=== PATIENT | female | born 1985 | race Hispanic/Latino ===

== ENCOUNTER 2018-08-11 23:44 | Emergency (ER) | payer SELFPAY ==
[2018-08-12] MEDS ORDERED: PHENAZOPYRIDINE 100MG TAB PO ONE (00:30)
[2018-08-12 00:45] LABS: Urine Bacteria <20 /HPF (<20); Urine Culture Reflex Order REFLEXED; Urine RBC <5 /HPF (NONE SEEN)
--- NOTE | 2018-08-12 01:09 | EDPHYS ---
Physician Documentation [facility] Name: Marlene Frias Age: 33 yrs Sex: Female : 1985 Arrival Date: 08/11/2018 Time: 23:47 Bed 20 Private MD: ED Physician Will Luz HPI: 08/12 00:02 This 33 yrs old Female presents to ER via Ambulatory with complaints of jr8 Urinary Frequency, Blood in Urine. 00:02 Onset: The symptoms/episode began/occurred gradually, 3 hour(s) ago. Associated signs jr8 and symptoms: Pertinent positives: dysuria, Pertinent negatives: abdominal pain, fever, vomiting. Modifying factors: The patient symptoms are alleviated by nothing, the patient symptoms are aggravated by nothing. The patient has not experienced similar symptoms in the past. The patient has not recently seen a physician. Patient reports urgency, dysuria, and blood in urine with onset 3 hrs ago. Also reports mild bilateral lower back pain. 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 - Ebola Screening: : No symptoms or risks identified at this time. ROS: 08/12 00:04 Constitutional: Negative for fever, chills, and weight loss, Cardiovascular: Negative jr8 for chest pain, palpitations, and edema, Respiratory: Negative for shortness of breath, cough, wheezing, and pleuritic chest pain, Abdomen/GI: Negative for abdominal pain, nausea, vomiting, diarrhea, and constipation, MS/Extremity: Negative for injury and deformity, Skin: Negative for injury, rash, and discoloration, Neuro: Negative for headache, weakness, numbness, tingling, and seizure. Back: Positive for pain at rest, of the left low back and right low back. : Positive for urinary symptoms, urinary frequency, small amounts, hematuria, burning with urination. Exam: 00:05 Constitutional: This is a well developed, well nourished patient who is awake, alert, jr8 and in no acute distress. Cardiovascular: Regular rate and rhythm with a normal S1 and S2. No gallops, murmurs, or rubs. Normal PMI, no JVD. No pulse deficits. Respiratory: Lungs have equal breath sounds bilaterally, clear to auscultation and percussion. No rales, rhonchi or wheezes noted. No increased work of breathing, no retractions or nasal flaring. Abdomen/GI: Soft, non-tender, with normal bowel sounds. No distension or tympany. No guarding or rebound. No evidence of tenderness throughout. Skin: Warm, dry with normal turgor. Normal color with no rashes, no lesions, and no evidence of cellulitis. MS/ Extremity: Pulses equal, no cyanosis. Neurovascular intact. Full, normal range of motion. Neuro: Awake and alert, GCS 15, oriented to person, place, time, and situation. Cranial nerves II-XII grossly intact. Motor strength 5/5 in all extremities. Sensory grossly intact. Cerebellar exam normal. Normal gait. Vital Signs: 08/11 23:49 BP 117 / 88; Pulse 77; Resp 16; Temp 97.3; Pulse Ox 98% on R/A; Weight 65.77 kg (R); aa1 Height 5 ft. 1 in. (154.94 cm); Pain 9/10; 08/12 01:18 Pulse 75; Resp 16 S; Pulse Ox 99% on R/A; jd3 08/11 23:49 Body Mass Index 27.40 (65.77 kg, 154.94 cm) aa1 MDM: 08/11 23:53 Patient medically screened. jr8 08/12 01:06 Data reviewed: vital signs, nurses notes, lab test result(s), urinalysis, hematuria, jr8 and as a result, I will discharge patient. ED course: Spoke with patient regarding symptoms and lab results. Will d/c patient with antibiotics for UTI. Patient should follow up with PCP. Patient verbalizes understanding. 08/11 23:58 Order name: Urine Microscopic Only; Complete Time: 00:53 ar5 08/12 00:47 Order name: Urine Culture EDCO 08/11 23:56 Order name: Urine Dipstick-Ancillary (obtain specimen); Complete Time: 00:12 jr8 Administered Medications: 00:19 Drug: Pyridium 100 mg Route: PO; jd3 01:15 Follow up: Response: No adverse reaction jd3 Disposition: 01:45 Co-signature as Attending Physician, Will Luz MD. anisha Disposition: 08/12/18 01:08 Discharged to Home. Impression: Urinary tract infection, site not specified. - Condition is Stable. - Discharge Instructions: Dysuria, Urinary Tract Infection, Adult. - Prescriptions for Pyridium 200 mg Oral Tablet - take 1 tablet by ORAL route every 8 hours for 3 days; 9 tablet. Macrobid 100 mg Oral Capsule - take 1 capsule by ORAL route every 12 hours for 7 days; 14 capsule. - Medication Reconciliation Form, Thank You Letter, Antibiotic Education, Prescription Opioid Use form. - Follow up: Private Physician; When: 2 - 3 days; Reason: Recheck today's complaints, Continuance of care, Re-evaluation by your physician. - Problem is new. - Symptoms are unchanged. Signatures: Dispatcher [employer] EDBrii Frazier RN RN aa1 Will Luz MD MD pkl Kal Osorio PA PA jr8 Mino Hughes RN RN jd3 Corrections: (The following items were deleted from the chart) 01:23 01:08 08/12/2018 01:08 Discharged to Home. Impression: Urinary tract infection, site jd3 not specified. Condition is Stable. Forms are Medication Reconciliation Form, Thank You Letter, Antibiotic Education, Prescription Opioid Use. Follow up: Private Physician; When: 2 - 3 days; Reason: Recheck today's complaints, Continuance of care, Re-evaluation by your physician. Problem is new. Symptoms are unchanged. jr8
--- NOTE | 2018-08-12 01:09 | ER ---
Nurse's Notes [facility] Name: Marlene Frias Age: 33 yrs Sex: Female : 1985 Arrival Date: 08/11/2018 Time: 23:47 Bed 20 Private MD: Diagnosis: Urinary tract infection, site not specified Presentation: 08/11 23:49 Presenting complaint: Patient states: pain with urination and urinary frequency for aa1 past couple hours. Transition of care: patient was not received from another setting of care. Onset of symptoms was August 11, 2018. Risk Assessment: Do you want to hurt yourself or someone else? Patient reports no desire to harm self or others. Initial Sepsis Screen: Does the patient meet any 2 criteria? No. Patient's initial sepsis screen is negative. Does the patient have a suspected source of infection? Yes: Dysuria/Frequency/Urgency/UTI. Care prior to arrival: None. 23:49 Method Of Arrival: Ambulatory aa1 23:49 Acuity: MELISA 4 aa1 Triage Assessment: 23:49 General: Appears in no apparent distress. comfortable, Behavior is calm, cooperative, aa1 appropriate for age. 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 - Ebola Screening: : No symptoms or risks identified at this time. Screenin/07 01:21 Abuse screen: Denies threats or abuse. Nutritional screening: No deficits noted. jd3 Tuberculosis screening: No symptoms or risk factors identified. Fall Risk None identified. Assessment: 08/11 23:55 General: Appears in no apparent distress. uncomfortable, Behavior is calm, cooperative, jd3 appropriate for age. Pain: Complains of pain in groin Quality of pain is described as aching. Neuro: Level of Consciousness is awake, alert, obeys commands, Oriented to person, place, time, situation, Appropriate for age. Cardiovascular: Capillary refill < 3 seconds Patient's skin is warm and dry. Respiratory: Airway is patent Respiratory effort is even, unlabored, Respiratory pattern is regular, symmetrical. GI: No signs and/or symptoms were reported involving the gastrointestinal system. : Reports burning with urination, urinary frequency. EENT: No signs and/or symptoms were reported regarding the EENT system. Derm: Skin is intact, Skin is dry, Skin is normal, Skin temperature is warm. Musculoskeletal: Circulation, motion, and sensation intact. Range of motion: intact in all extremities. 08/12 00:30 Reassessment: Patient appears in no apparent distress at this time. Patient and/or jd3 family updated on plan of care and expected duration. Pain level reassessed. Patient is alert, oriented x 3, equal unlabored respirations, skin warm/dry/pink. 01:22 Reassessment: Patient appears in no apparent distress at this time. Patient and/or jd3 family updated on plan of care and expected duration. Pain level reassessed. Patient is alert, oriented x 3, equal unlabored respirations, skin warm/dry/pink. Vital Signs: 08/11 23:49 BP 117 / 88; Pulse 77; Resp 16; Temp 97.3; Pulse Ox 98% on R/A; Weight 65.77 kg (R); aa1 Height 5 ft. 1 in. (154.94 cm); Pain 9/10; 08/12 01:18 Pulse 75; Resp 16 S; Pulse Ox 99% on R/A; jd3 08/11 23:49 Body Mass Index 27.40 (65.77 kg, 154.94 cm) aa1 ED Course: 08/11 23:47 Patient arrived in ED. ds1 23:49 Triage completed. aa1 23:49 Arm band placed on right wrist. aa1 23:53 Kal Osorio PA is PHCP. jr8 23:53 Will Luz MD is Attending Physician. jr8 23:55 Mino Hughes RN is Primary Nurse. jd3 08/12 01:22 Patient has correct armband on for positive identification. Bed in low position. Call jd3 light in reach. Side rails up X 1. Adult w/ patient. 01:22 No provider procedures requiring assistance completed. Patient did not have IV access jd3 during this emergency room visit. Administered Medications: 00:19 Drug: Pyridium 100 mg Route: PO; jd3 01:15 Follow up: Response: No adverse reaction jd3 Outcome: 01:08 Discharge ordered by . jrNeha 01:22 Discharged to home ambulatory, with family. jd3 01:22 Condition: stable 01:22 Discharge instructions given to patient, family, Instructed on discharge instructions, follow up and referral plans. medication usage, Demonstrated understanding of instructions, follow-up care, medications, Prescriptions given X 2. 01:23 Patient left the ED. jd3 Signatures: Brii Reyes RN RN [email or web address] Soledad Dozier ds1 Kal Osorio PA PA jr8 Mino Hughes RN RN jd3
== END 2018-08-12 01:23 | disposition home or self-care (01) ==
LOC: ER 23:44
DX: N39.0 Urinary tract infection, site not specified (principal)
CPT/HCPCS: 81015; 87086; 87088; 99283